=== PATIENT | male | born 1980 | race Caucasian/White ===

== ENCOUNTER 2016-05-09 05:01 | Emergency (ER) | payer OTHER ==
--- NOTE | 2016-05-09 06:06 | ED CLINICAL REPORT ---
Clinical Report - Physicians/Mid Levels [facility] [address] [place] [address] 05/09/2016 5:03 Patient: EVELYN WHITE Time Seen: 05:58 May 09 2016. Arrived- By private vehicle. Historian- patient. CPT: ER phys charges level 3 (#[id number]). HISTORY OF PRESENT ILLNESS Chief Complaint: DENTAL PAIN. 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 Pain described as moderate. The patient has had toothache. He has had mild swelling of the right face. (Pt drained the abscess himself at home and got a lot of return. Pain is a lot better now.). Similar symptoms previously: None. Recent medical care: Not recently seen/assessed. REVIEW OF SYSTEMS No fever, eye discomfort, cough, difficulty breathing or chest pain. No nausea, abdominal pain, joint pain, skin rash or enlarged lymph nodes. No vomiting. All systems otherwise negative, except as recorded above. PAST HISTORY See nurses notes. Hypertension. Medications: Atenolol Oral. Allergies: Pertussis Vaccines. SOCIAL HISTORY Never smoker. Occasional alcohol use. No drug use. ADDITIONAL NOTES The nursing notes have been reviewed. PHYSICAL EXAM Vital Signs: 05/09/2016 05:07 BP: 159/88. HR: 96. RR: 16. O2 saturation: 96%. Temp: 98.3 F. Pain level now: 10. Appearance: Alert. No acute distress. Head: Normal external inspection. Eyes: Pupils equal, round and reactive to light. Conjunctivae and eyelids normal. ENT: Moderate dental tenderness of a single tooth with gingival induration and swelling (upper right medial incisor). Ears normal. Nose normal. Pharynx normal. Lips normal. Uvula midline. (Swollen anterior, upper gums). Neck: No adenopathy. CVS: Normal heart rate and rhythm. Heart sounds normal. Pulses normal. No cardiac murmur. Respiratory: No respiratory distress. Breath sounds normal. Abdomen: Soft and nontender. Skin: Normal skin color. No rash. Extremities: Extremities nontender. Neuro: Oriented X 3. No motor deficit. No sensory deficit. PROGRESS AND PROCEDURES Course of Care: Abscess drained by patient . NO need for drainage procedure. Patient/family counseled. Disposition: Discharged. Condition: stable. CLINICAL IMPRESSION Periapical dental abscess (drained). No sinus tract. INSTRUCTIONS Apply moist heat for 15-20 minutes three times a day for one weeks until better. Warnings: Further evaluation is necessary. GENERAL WARNINGS: Return or contact your physician immediately if your condition worsens or changes unexpectedly, if not improving as expected, or if other problems arise. Your Current Medications: CONTINUE TAKING THE FOLLOWING MEDICATIONS: Atenolol Oral. Prescription Medications: Hydrocodone/APAP 5mg/325mg: take 1 to 2 orally every 6 hours as needed for pain. Dispense fifteen (15). No refills. Penicillin V 500mg: take 1 tab orally every 6 hours for 10 days. Dispense forty (40). No refill Follow-up: Follow up with a dentist in one week. Call for the next available appointment. Understanding of the discharge instructions verbalized by patient. (Electronically signed by Dalton Yi MD 05/12/2016 11:45)
--- NOTE | 2016-05-09 06:06 | ED CLINICAL REPORT ---
Clinical Report - Physicians/Mid Levels [facility] [address] [place] [address] 05/09/2016 5:03 Patient: EVELYN WHITE Time Seen: 05:58 May 09 2016. Arrived- By private vehicle. Historian- patient. CPT: ER phys charges level 3 (#[id number]). HISTORY OF PRESENT ILLNESS Chief Complaint: DENTAL PAIN. 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 Pain described as moderate. The patient has had toothache. He has had mild swelling of the right face. (Pt drained the abscess himself at home and got a lot of return. Pain is a lot better now.). Similar symptoms previously: None. Recent medical care: Not recently seen/assessed. REVIEW OF SYSTEMS No fever, eye discomfort, cough, difficulty breathing or chest pain. No nausea, abdominal pain, joint pain, skin rash or enlarged lymph nodes. No vomiting. All systems otherwise negative, except as recorded above. PAST HISTORY See nurses notes. Hypertension. Medications: Atenolol Oral. Allergies: Pertussis Vaccines. SOCIAL HISTORY Never smoker. Occasional alcohol use. No drug use. ADDITIONAL NOTES The nursing notes have been reviewed. PHYSICAL EXAM Vital Signs: 05/09/2016 05:07 BP: 159/88. HR: 96. RR: 16. O2 saturation: 96%. Temp: 98.3 F. Pain level now: 10. Appearance: Alert. No acute distress. Head: Normal external inspection. Eyes: Pupils equal, round and reactive to light. Conjunctivae and eyelids normal. ENT: Moderate dental tenderness of a single tooth with gingival induration and swelling (upper right medial incisor). Ears normal. Nose normal. Pharynx normal. Lips normal. Uvula midline. (Swollen anterior, upper gums). Neck: No adenopathy. CVS: Normal heart rate and rhythm. Heart sounds normal. Pulses normal. No cardiac murmur. Respiratory: No respiratory distress. Breath sounds normal. Abdomen: Soft and nontender. Skin: Normal skin color. No rash. Extremities: Extremities nontender. Neuro: Oriented X 3. No motor deficit. No sensory deficit. PROGRESS AND PROCEDURES Course of Care: Abscess drained by patient . NO need for drainage procedure. Patient/family counseled. Disposition: Discharged. Condition: stable. CLINICAL IMPRESSION Periapical dental abscess (drained). No sinus tract. INSTRUCTIONS Apply moist heat for 15-20 minutes three times a day for one weeks until better. Warnings: Further evaluation is necessary. GENERAL WARNINGS: Return or contact your physician immediately if your condition worsens or changes unexpectedly, if not improving as expected, or if other problems arise. Your Current Medications: CONTINUE TAKING THE FOLLOWING MEDICATIONS: Atenolol Oral. Prescription Medications: Hydrocodone/APAP 5mg/325mg: take 1 to 2 orally every 6 hours as needed for pain. Dispense fifteen (15). No refills. Penicillin V 500mg: take 1 tab orally every 6 hours for 10 days. Dispense forty (40). No refill Follow-up: Follow up with a dentist in one week. Call for the next available appointment. Understanding of the discharge instructions verbalized by patient. (Electronically signed by Dalton Yi MD 05/12/2016 11:45)
--- NOTE | 2016-05-09 06:06 | ED NURSING NOTES ---
Clinical Report - Nurses [facility] [address] [place] [address] 05/09/2016 5:03 Patient: EVELYN WHITE TRIAGE Triage time 05:07. Acuity: LEVEL 5. Chief Complaint: RIGHT UPPER TOOTHACHE and (Feels like cavity has become an abcess. Has been taking an old antibiotic he has x 4 days (feels like it has done nothing).). Alert. No acute distress. SEPSIS SCREEN: Sepsis Screen: negative. Negative (no infection suspected/documented). --05:11 Doug Connell R.N. 05:07 05/09/16. BP: 159/88 (regular adult cuff) taken on the left arm, via an automated monitor, while sitting. HR: 96 (normal rate). RR: 16 (regular, unlabored and normal). O2 saturation: 96% on room air. Temp: 98.3 F (oral). Pain level now: 03/22. --05:11 Doug Connell R.N. Weight: 111.1 kg stated. Height/Length: 73 inches Per Patient. BMI: 32.3. --05:08 Doug Connell R.N. Medications Atenolol Oral. --05:10 Doug Connell R.N. Medication/allergy information source: the patient. --05:11 Doug Connell R.N. Allergies Pertussis Vaccines. --05:10 Doug Connell R.N. History Arrived by private vehicle. Primary physician (No dentist at this time, planning on making an appt with [place] dentist.). Onset. (about 1 week ago). No fever, hoarseness or ear pain. He has had moderate swelling of the right jaw. 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 PAST MEDICAL HX: Immunizations: up-to-date. Has not received seasonal influenza immunization. SOCIAL HX: Never smoker. Occasional alcohol use. No drug use. He has not traveled outside the [place] The patient was not exposed to MRSA. ABUSE ASSESSMENT: Abuse assessment: The patient was asked "Do you feel safe in your home?" and "Has anyone hurt you or threatened to hurt you?". No report of abuse. SELF HARM ASSESSMENT: A self harm assessment was performed. The patient answered "no" to the question "Do you have thoughts of harming or killing yourself?" and "Have you recently had thoughts about harming or killing others?". FALL RISK ASSESSMENT: Fall risk assessment completed. No fall risk identified. NUTRITIONAL RISK ASSESSMENT: The nutritional risk assessment revealed no deficiencies. FUNCTIONAL ASSESSMENT: Functional assessment: no impairments noted. LEARNING NEEDS ASSESSMENT: The learning needs assessment revealed no barriers. SKIN INTEGRITY ASSESSMENT: Skin integrity risk assessment completed. No skin integrity risk identified. --05:11 Doug Connell R.N. PROBLEMS: Hypertension. --05:10 Doug Connell R.N. Assessment GENERAL / NEURO / PSYCH: Alert. Oriented X 4. Appears in no acute distress. Se Coma Scale: 15- eyes open spontaneously (4); best verbal response- oriented x 4 (5); best motor response- obeys commands (6). Patient appears calm and cooperative. RESPIRATORY: Respirations not labored. SKIN: Skin is warm and dry. --05:11 Doug Connell R.N. Interventions ID band on patient. To treatment room. --05:11 Doug Connell R.N. NURSING PROGRESS NOTES The initial plan of care for this patient has been created This plan of care was discussed with the patient. Reassurance given to the patient. Two patient identifiers checked. Call light placed in reach. Side rails up x 1. Bed placed in lowest position. Brakes of bed on. Patient ready for evaluation- ED physician notified. --05:11 Doug Connell R.N. DISPOSITION / DISCHARGE Departure time: 06:13. Condition at departure: unchanged. No learning barriers present. Discharge instructions provided and reviewed with the patient. Reviewed medication(s) side effects and precautions information. Prescription(s) given to the patient. Reviewed referral to a dentist. Patient verbalized understanding. Written instructions provided in Yoruba. The patient was discharged by the physician. He was discharged home and unaccompanied at time of discharge. He left the Emergency Department ambulatory and via private vehicle. Patient driving. --06:14 Thang Chahal R.N. 06:12 05/09/16. BP: 145/90. HR: 85. RR: 15. O2 saturation: 97%. Temp: 98.3 F. Pain level now 4/10. --06:14 Thang Chahal R.N. Locked/Released at 05/09/2016 6:14 by Thang Chahal R.N.
--- NOTE | 2016-05-09 06:06 | ED NURSING NOTES ---
Clinical Report - Nurses [facility] [address] [place] [address] 05/09/2016 5:03 Patient: EVELYN WHITE TRIAGE Triage time 05:07. Acuity: LEVEL 5. Chief Complaint: RIGHT UPPER TOOTHACHE and (Feels like cavity has become an abcess. Has been taking an old antibiotic he has x 4 days (feels like it has done nothing).). Alert. No acute distress. SEPSIS SCREEN: Sepsis Screen: negative. Negative (no infection suspected/documented). --05:11 Doug Connell R.N. 05:07 05/09/16. BP: 159/88 (regular adult cuff) taken on the left arm, via an automated monitor, while sitting. HR: 96 (normal rate). RR: 16 (regular, unlabored and normal). O2 saturation: 96% on room air. Temp: 98.3 F (oral). Pain level now: 03/22. --05:11 Doug Connell R.N. Weight: 111.1 kg stated. Height/Length: 73 inches Per Patient. BMI: 32.3. --05:08 Doug Connell R.N. Medications Atenolol Oral. --05:10 Doug Connell R.N. Medication/allergy information source: the patient. --05:11 Doug Connell R.N. Allergies Pertussis Vaccines. --05:10 Doug Connell R.N. History Arrived by private vehicle. Primary physician (No dentist at this time, planning on making an appt with [place] dentist.). Onset. (about 1 week ago). No fever, hoarseness or ear pain. He has had moderate swelling of the right jaw. 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 PAST MEDICAL HX: Immunizations: up-to-date. Has not received seasonal influenza immunization. SOCIAL HX: Never smoker. Occasional alcohol use. No drug use. He has not traveled outside the [place] The patient was not exposed to MRSA. ABUSE ASSESSMENT: Abuse assessment: The patient was asked "Do you feel safe in your home?" and "Has anyone hurt you or threatened to hurt you?". No report of abuse. SELF HARM ASSESSMENT: A self harm assessment was performed. The patient answered "no" to the question "Do you have thoughts of harming or killing yourself?" and "Have you recently had thoughts about harming or killing others?". FALL RISK ASSESSMENT: Fall risk assessment completed. No fall risk identified. NUTRITIONAL RISK ASSESSMENT: The nutritional risk assessment revealed no deficiencies. FUNCTIONAL ASSESSMENT: Functional assessment: no impairments noted. LEARNING NEEDS ASSESSMENT: The learning needs assessment revealed no barriers. SKIN INTEGRITY ASSESSMENT: Skin integrity risk assessment completed. No skin integrity risk identified. --05:11 Doug Connell R.N. PROBLEMS: Hypertension. --05:10 Doug Connell R.N. Assessment GENERAL / NEURO / PSYCH: Alert. Oriented X 4. Appears in no acute distress. Se Coma Scale: 15- eyes open spontaneously (4); best verbal response- oriented x 4 (5); best motor response- obeys commands (6). Patient appears calm and cooperative. RESPIRATORY: Respirations not labored. SKIN: Skin is warm and dry. --05:11 Doug Connell R.N. Interventions ID band on patient. To treatment room. --05:11 Doug Connell R.N. NURSING PROGRESS NOTES The initial plan of care for this patient has been created This plan of care was discussed with the patient. Reassurance given to the patient. Two patient identifiers checked. Call light placed in reach. Side rails up x 1. Bed placed in lowest position. Brakes of bed on. Patient ready for evaluation- ED physician notified. --05:11 Doug Connell R.N. DISPOSITION / DISCHARGE Departure time: 06:13. Condition at departure: unchanged. No learning barriers present. Discharge instructions provided and reviewed with the patient. Reviewed medication(s) side effects and precautions information. Prescription(s) given to the patient. Reviewed referral to a dentist. Patient verbalized understanding. Written instructions provided in Kyrgyz. The patient was discharged by the physician. He was discharged home and unaccompanied at time of discharge. He left the Emergency Department ambulatory and via private vehicle. Patient driving. --06:14 Thang Chahal R.N. 06:12 05/09/16. BP: 145/90. HR: 85. RR: 15. O2 saturation: 97%. Temp: 98.3 F. Pain level now 4/10. --06:14 Thang Chahal R.N. Locked/Released at 05/09/2016 6:14 by Thang Chahal R.N.
--- NOTE | 2016-05-12 11:45 | ED MED RECONCILIATION SUMMARY ---
Patient: EVELYN WHITE Medication Reconciliation Report [facility] VisitID: [id number] [address] [place] [address] 35y, M Registration Date/Time: 05/09/2016 Weight: 111.1 kg Height/Length: 73 in. BMI: 32.3 ALLERGIES: Pertussis Vaccines The patient's Home Medications are listed below: CONTINUE TAKING THE FOLLOWING MEDICATIONS: Atenolol Oral The source(s) of the original Home Medication information: patient The following Medications were given to the patient in the Emergency Department: None. The following Medications were prescribed to the patient: Hydrocodone/APAP 5mg/325mg: take 1 to 2 orally every 6 hours as needed for pain. Dispense fifteen (15). No refills. -- Dalton Yi MD Penicillin V 500mg: take 1 tab orally every 6 hours for 10 days. Dispense forty (40). No refill -- Dalton Yi MD
--- NOTE | 2016-05-12 11:45 | ED DISCHARGE INSTRUCTIONS ---
Patient: EVELYN WHITE General Instructions [facility] VisitID: [id number] [place] [address] 35y, M Registration Date/Time: 05/09/2016 Periapical dental abscess (drained). No sinus tract. INSTRUCTIONS Apply moist heat for 15-20 minutes three times a day for one weeks until better. Warnings: Further evaluation is necessary. GENERAL WARNINGS: Return or contact your physician immediately if your condition worsens or changes unexpectedly, if not improving as expected, or if other problems arise. Your Current Medications: CONTINUE TAKING THE FOLLOWING MEDICATIONS: Atenolol Oral. Prescription Medications: Hydrocodone/APAP 5mg/325mg: take 1 to 2 orally every 6 hours as needed for pain. Dispense fifteen (15). No refills. Penicillin V 500mg: take 1 tab orally every 6 hours for 10 days. Dispense forty (40). No refill Follow-up: Follow up with a dentist in one week. Call for the next available appointment. Understanding of the discharge instructions verbalized by patient. ADDITIONAL INFORMATION Dental Abscess A dental abscess is an infection of the tooth socket. It often starts with a crack or cavity in the tooth. A pocket of pus forms between the tooth and the bone. The infection causes pain and swelling of the gum, cheek or jaw. The pain is often made worse by drinking hot or cold fluids, or biting on hard foods. Pain may be felt in the facial sinus or in the ear. A severe infection can interfere with swallowing and breathing. In the emergency department or clinic, you will be started on an antibiotic. However, final treatment requires drainage of the pus. This can be done by removing the tooth or performing a root canal. A root canal is done by an oral surgeon and involves drilling an opening in the tooth to drain the pus. After the infection has healed, a crown is placed over the tooth. Home care The following guidelines will help you care for your abscess at home: Avoid hot and cold foods and liquids since your tooth may be sensitive to temperature changes. If your tooth is chipped or cracked, or if there is a large open cavity, applyoil of cloves(available [id number]-vlbpvmv in drug stores) directly to the tooth to reduce pain. Some pharmacies carry an phsb-hpc-lhzokxu "toothache kit". This contains oil of cloves and a paste, which can be applied over the exposed tooth to decrease sensitivity. Apply an ice pack (ice cubes in a plastic bag, wrapped in a towel) over the injured area for 20 minutes every 12 hours the first day for pain relief. Continue this 34 times a day until the pain and swelling goes away. You may use acetaminophen or ibuprofen to control pain, unless another medicine was prescribed. If you have chronic liver or kidney disease or ever had a stomach ulcer or GI bleeding, talk with your doctor before using these medicines. An antibiotic will be prescribed. Take it as directed until completed, even if you are feeling better sooner. Follow-up care Follow up as directed with a dentist or oral surgeon. Even though your pain may improve with the treatment given today, only a dentist or oral surgeon can provide full treatment for this problem. When to seek medical care Get prompt medical attention or contact your doctor if any of the following occur: Your face or eyelid becomes swollen or red Pain worsens or spreads to the neck Fever over 100.4F (38.0C) Unusual drowsiness; headache or stiff neck; weakness, or fainting Pus drains from the gum or tooth Difficulty talking, swallowing or breathing Unable to open your mouth wide Dental Pain A crack or cavity in the tooth, which exposes the sensitive inner area of the tooth can cause tooth pain. An infection in the gum or the root of the tooth can cause pain and swelling. The pain is often made worse by drinking hot or cold fluids, or biting on hard foods. Pain may spread from the tooth to the ear or jaw on the same side. Home Care: Avoid hot and cold foods and liquids since your tooth may be sensitive to temperature changes. If your tooth is chipped or cracked, or if there is a large open cavity, apply OIL OF CLOVES (available gbjo-avh-lfjkknt in drug stores) directly to the tooth to reduce pain. Some pharmacies carry an nlne-imv-nlcdrtg "toothache kit." This contains a paste, which can be applied over the exposed tooth to decrease sensitivity. A cold pack on your jaw over the sore area may help reduce pain. You may use acetaminophen (Tylenol) or ibuprofen (Motrin, Advil) to control pain, unless another medicine was prescribed. [ NOTE: If you have chronic liver or kidney disease or ever had a stomach ulcer or GI bleeding, talk with your doctor before using these medicines.] If you have signs of an infection, an antibiotic will be given. Take it as directed. Follow-Up as directed with a dentist. Your pain may go away with the treatment given. However, only a dentist can fully evaluate and treat the cause and prevent the pain from coming back again. TOOTHACHE IS A SIGN OF DISEASE IN YOUR TOOTH AND SHOULD BE EXAMINED AND TREATED BY A DENTIST. Get Prompt Medical Attention if any of the following occur: Your face becomes swollen or red Pain worsens or spreads to the neck Fever over 100.4 F (38.0 C) Unusual drowsiness; headache or stiff neck; weakness or fainting Pus drains from the tooth Difficulty swallowing or breathing You have been given the following additional information: Tooth Abscess Dental Pain (Electronically signed by Dalton Yi MD 05/12/2016 11:45)
--- NOTE | 2016-05-12 11:45 | ED MAR SUMMARY ---
..... Medication Administration Record [facility] [address], [place] [id number] Patient: EVELYN WHITE Visit ID: [id number] 35y, M Weight: 111.1 kg Height/Length: 73 in BMI: 32.3 ALLERGIES: Pertussis Vaccines
--- NOTE | 2016-05-12 11:45 | ED DISCHARGE INSTRUCTIONS ---
Patient: EVELYN WHITE General Instructions [facility] VisitID: [id number] [place] [address] 35y, M Registration Date/Time: 05/09/2016 Periapical dental abscess (drained). No sinus tract. INSTRUCTIONS Apply moist heat for 15-20 minutes three times a day for one weeks until better. Warnings: Further evaluation is necessary. GENERAL WARNINGS: Return or contact your physician immediately if your condition worsens or changes unexpectedly, if not improving as expected, or if other problems arise. Your Current Medications: CONTINUE TAKING THE FOLLOWING MEDICATIONS: Atenolol Oral. Prescription Medications: Hydrocodone/APAP 5mg/325mg: take 1 to 2 orally every 6 hours as needed for pain. Dispense fifteen (15). No refills. Penicillin V 500mg: take 1 tab orally every 6 hours for 10 days. Dispense forty (40). No refill Follow-up: Follow up with a dentist in one week. Call for the next available appointment. Understanding of the discharge instructions verbalized by patient. ADDITIONAL INFORMATION Dental Abscess A dental abscess is an infection of the tooth socket. It often starts with a crack or cavity in the tooth. A pocket of pus forms between the tooth and the bone. The infection causes pain and swelling of the gum, cheek or jaw. The pain is often made worse by drinking hot or cold fluids, or biting on hard foods. Pain may be felt in the facial sinus or in the ear. A severe infection can interfere with swallowing and breathing. In the emergency department or clinic, you will be started on an antibiotic. However, final treatment requires drainage of the pus. This can be done by removing the tooth or performing a root canal. A root canal is done by an oral surgeon and involves drilling an opening in the tooth to drain the pus. After the infection has healed, a crown is placed over the tooth. Home care The following guidelines will help you care for your abscess at home: Avoid hot and cold foods and liquids since your tooth may be sensitive to temperature changes. If your tooth is chipped or cracked, or if there is a large open cavity, applyoil of cloves(available azsd-yer-qdjzymw in drug stores) directly to the tooth to reduce pain. Some pharmacies carry an koxh-uey-wxnkcnj "toothache kit". This contains oil of cloves and a paste, which can be applied over the exposed tooth to decrease sensitivity. Apply an ice pack (ice cubes in a plastic bag, wrapped in a towel) over the injured area for 20 minutes every 12 hours the first day for pain relief. Continue this 34 times a day until the pain and swelling goes away. You may use acetaminophen or ibuprofen to control pain, unless another medicine was prescribed. If you have chronic liver or kidney disease or ever had a stomach ulcer or GI bleeding, talk with your doctor before using these medicines. An antibiotic will be prescribed. Take it as directed until completed, even if you are feeling better sooner. Follow-up care Follow up as directed with a dentist or oral surgeon. Even though your pain may improve with the treatment given today, only a dentist or oral surgeon can provide full treatment for this problem. When to seek medical care Get prompt medical attention or contact your doctor if any of the following occur: Your face or eyelid becomes swollen or red Pain worsens or spreads to the neck Fever over 100.4F (38.0C) Unusual drowsiness; headache or stiff neck; weakness, or fainting Pus drains from the gum or tooth Difficulty talking, swallowing or breathing Unable to open your mouth wide Dental Pain A crack or cavity in the tooth, which exposes the sensitive inner area of the tooth can cause tooth pain. An infection in the gum or the root of the tooth can cause pain and swelling. The pain is often made worse by drinking hot or cold fluids, or biting on hard foods. Pain may spread from the tooth to the ear or jaw on the same side. Home Care: Avoid hot and cold foods and liquids since your tooth may be sensitive to temperature changes. If your tooth is chipped or cracked, or if there is a large open cavity, apply OIL OF CLOVES (available jxea-hoy-dbycayz in drug stores) directly to the tooth to reduce pain. Some pharmacies carry an tdyt-tjj-blbaoxn "toothache kit." This contains a paste, which can be applied over the exposed tooth to decrease sensitivity. A cold pack on your jaw over the sore area may help reduce pain. You may use acetaminophen (Tylenol) or ibuprofen (Motrin, Advil) to control pain, unless another medicine was prescribed. [ NOTE: If you have chronic liver or kidney disease or ever had a stomach ulcer or GI bleeding, talk with your doctor before using these medicines.] If you have signs of an infection, an antibiotic will be given. Take it as directed. Follow-Up as directed with a dentist. Your pain may go away with the treatment given. However, only a dentist can fully evaluate and treat the cause and prevent the pain from coming back again. TOOTHACHE IS A SIGN OF DISEASE IN YOUR TOOTH AND SHOULD BE EXAMINED AND TREATED BY A DENTIST. Get Prompt Medical Attention if any of the following occur: Your face becomes swollen or red Pain worsens or spreads to the neck Fever over 100.4 F (38.0 C) Unusual drowsiness; headache or stiff neck; weakness or fainting Pus drains from the tooth Difficulty swallowing or breathing You have been given the following additional information: Tooth Abscess Dental Pain (Electronically signed by Dalton Yi MD 05/12/2016 11:45)
--- NOTE | 2016-05-12 11:45 | ED MED RECONCILIATION SUMMARY ---
Patient: EVELYN WHITE Medication Reconciliation Report [facility] VisitID: [id number] [address] [place] [address] 35y, M Registration Date/Time: 05/09/2016 Weight: 111.1 kg Height/Length: 73 in. BMI: 32.3 ALLERGIES: Pertussis Vaccines The patient's Home Medications are listed below: CONTINUE TAKING THE FOLLOWING MEDICATIONS: Atenolol Oral The source(s) of the original Home Medication information: patient The following Medications were given to the patient in the Emergency Department: None. The following Medications were prescribed to the patient: Hydrocodone/APAP 5mg/325mg: take 1 to 2 orally every 6 hours as needed for pain. Dispense fifteen (15). No refills. -- Dalton Yi MD Penicillin V 500mg: take 1 tab orally every 6 hours for 10 days. Dispense forty (40). No refill -- Dalton Yi MD
--- NOTE | 2016-05-12 11:45 | ED MAR SUMMARY ---
..... Medication Administration Record [facility] [address] [place], [place] [id number] Patient: EVELYN WHITE Visit ID: [id number] 35y, M Weight: 111.1 kg Height/Length: 73 in BMI: 32.3 ALLERGIES: Pertussis Vaccines
== END 2016-05-09 06:10 | disposition home or self-care (01) ==
LOC: ED SRH 05:01
DX: K04.7 Periapical abscess without sinus (principal); Z79.899 Other long term (current) drug therapy; Z88.7 Allergy status to serum and vaccine